=== PATIENT | male | born 1970 ===

== ENCOUNTER 2021-01-04 06:00 | Outpatient (RCR) | payer BC, SELFPAY | END 2021-02-03 23:59 | disposition home or self-care (01) | LOC: MPT 06:00 | PROVIDERS: Referring Provider Nurse Practitioner Family; Visit Provider Nurse Practitioner Family | DX: N31.9 Neuromuscular dysfunction of bladder, unspecified (principal) | CPT/HCPCS: 97110; 97140; 97161; 97530 ==

== ENCOUNTER 2021-02-04 06:00 | Outpatient (RCR) | payer BC, SELFPAY | END 2021-03-06 23:59 | disposition home or self-care (01) | LOC: MPT 06:00 | PROVIDERS: Referring Provider Nurse Practitioner Family; Visit Provider Nurse Practitioner Family | DX: N31.9 Neuromuscular dysfunction of bladder, unspecified (principal) | CPT/HCPCS: 97140; 97530 ==